=== PATIENT | female | born 1995 | race African-American/Black ===

== ENCOUNTER 2016-07-27 19:22 | Emergency (ER) | payer SELFPAY ==
[~2016-07-27] VITALS: Ht 149.9 cm; Wt 58.0 kg
[2016-07-27 19:23] VITALS: BP 124/62; PULSE 57; RESP 15; TEMP 97.2; O2SAT 97
== END 2016-07-27 22:00 | disposition left against medical advice (07) ==
LOC: NED 19:22
DX: R68.89 Other general symptoms and signs (principal)
CPT/HCPCS: 99281

== ENCOUNTER 2017-02-07 08:20 | Emergency (ER) | payer OTHER ==
[~2017-02-07] VITALS: Ht 149.9 cm; Wt 55.0 kg
[2017-02-07 08:23] VITALS: BP 102/59; PULSE 64; RESP 12; TEMP 97.7; O2SAT 100
--- NOTE | 2017-02-07 08:37 | PD ---
HPI Chief Complaint: Complaint Time Seen by Provider: 08:35 Travel History International Travel<30 days: No Contact w/Intl Traveler<30days: No Traveled to known affect area: No History of Present Illness HPI 21-year-old female patient with history of recent UTI, presents to the ER today because she is having burning when urination for several days. She thinks she may have a UTI. She denies any fevers, abdominal pain, or any other symptoms. Modifying Factors: None Associated Signs & Symptoms: Urinary symptoms Risk Factors: None PFSH Past Medical History Medical History: Denies Significant Hx Diminished Hearing: No Immunizations Current: Yes ?: Unknown LMP: 02/02/2017 Past Surgical History Surgical History: No Previous Surgery Social History Alcohol Use: Yes (RARE ) Tobacco Use: No Substance Use: Yes (WEED EVERY DAY marijuanna) Allergies-Medications (Allergen,Severity, Reaction): Coded Allergies: No Known Allergies (Unverified , 07/27/16) Reported Meds & Prescriptions Reported Meds & Active Scripts Active No Active Prescriptions or Reported Medications Review of Systems Except as stated in HPI: all other systems reviewed are Neg Physical Exam Narrative GENERAL: Well-developed young -[place] female patient currently in no acute distress. Awake and oriented 3. SKIN: Focused skin assessment warm/dry. HEAD: Atraumatic. Normocephalic. EYES: Pupils equal and round. No scleral icterus. No injection or drainage. ENT: No nasal bleeding or discharge. Mucous membranes pink and moist. NECK: Trachea midline. No JVD. CARDIOVASCULAR: Regular rate and rhythm. No murmur appreciated. RESPIRATORY: No accessory muscle use. Clear to auscultation. Breath sounds equal bilaterally. GASTROINTESTINAL: Abdomen soft, non-tender, nondistended. Hepatic and splenic margins not palpable. MUSCULOSKELETAL: No obvious deformities. No clubbing. No cyanosis. No edema. NEUROLOGICAL: Awake and alert. No obvious cranial nerve deficits. Motor grossly within normal limits. Normal speech. PSYCHIATRIC: Appropriate mood and affect; insight and judgment normal. Data Data Last Documented VS Vital Signs Date Time Temp Pulse Resp B/P (MAP) Pulse Ox O2 Delivery O2 Flow Rate FiO2 02/07/17 08:23 97.7 64 12 102/59 (73) 100 Orders Orders Gc And Chlamydia Pcr (02/07/17 08:29) Wet Prep Profile (02/07/17 08:29) Ua Includes Microscopic (02/07/17 08:29) Ed Urine Pregnancytest Poc (02/07/17 08:29) Labs Laboratory Tests Test 02/07/17 08:35 Urine Color YELLOW Urine Turbidity HAZY Urine pH 6.0 Urine Specific [place] 1.026 Urine Protein TRACE mg/dL Urine Glucose (UA) NEG mg/dL Urine Ketones NEG mg/dL Urine Occult Blood SMALL Urine Nitrite NEG Urine Bilirubin NEG Urine Urobilinogen 2.0 MG/DL Urine Leukocyte Esterase LARGE Urine RBC LESS THAN 1 /hpf Urine WBC 4 /hpf Urine Squamous Epithelial Cells 17 /hpf Urine Hyaline Casts 1 /lpf Urine Mucus FEW /lpf MDM Medical Decision Making Medical Screen Exam Complete: Yes Emergency Medical Condition: Yes Medical Record Reviewed: Yes Interpretation(s) Laboratory Tests Test 02/07/17 08:35 Urine Turbidity HAZY (CLEAR) Urine Occult Blood SMALL (NEG) Urine Leukocyte Esterase LARGE (NEG) Urine Mucus FEW /lpf (OCC) Differential Diagnosis UTI versus vaginitis versus cervicitis Narrative Course I have offered to do a pelvic exam for further evaluation but the patient is declining exam at this time. UA is equivocal for mild UTI. My plan would be to treat her with follow-up to primary care physician. Return for new issues as needed. The plan has discussed with her and she states understanding. Diagnosis Primary Impression: UTI (urinary tract infection) Med/Other Pt SpecificInfo: Prescription(s) given Scripts Nitrofurantoin Monohydrate Macrocrystals (Macrobid) 100 Mg Cap 100 MG PO BID for Infection for 7 Days, CAP 0 Refills Prov: Mandeep Acuña MD 02/07/17 Disposition: 01 DISCHARGE HOME Condition: Stable Mandeep Acuña MD Feb 07, 2017 08:37
[2017-02-07 08:50] LABS: BLOOD, URINE SMALL (NEG); GLUCOSE,URINE NEG (NEG); HYALINE CAST, URINE 1 /lpf (RARE); KETONE, URINE NEG (NEG); MUCUS URINE FEW /lpf (OCC); NITRITE,URINE NEG (NEG); SQUAMOUS EPITHELIAL CELL URINE 17 /hpf (0-5); URINE COLOR YELLOW (YELLW/STRAW)
[2017-02-07] MEDS ORDERED: MACR100C2 PO (09:09)
== END 2017-02-07 09:30 | disposition home or self-care (01) ==
LOC: NEPE 08:20
DX: N39.0 Urinary tract infection, site not specified (principal)
CPT/HCPCS: 81001; 84703; 99283

== ENCOUNTER 2017-10-12 13:03 | Emergency (ER) | payer SELFPAY ==
[~2017-10-12] VITALS: Ht 124.5 cm; Wt 54.0 kg
[~2017-10-12 13:03] MED LIST: MACR100C2 PO
[2017-10-12 13:14] VITALS: BP 108/60; PULSE 77; RESP 16; TEMP 98.1; O2SAT 99
--- NOTE | 2017-10-12 14:22 | PD ---
HPI Chief Complaint: Abdominal Pain Time Seen by Provider: 14:14 Travel History International Travel<30 days: No Contact w/Intl Traveler<30days: No Traveled to known affect area: No History of Present Illness HPI This is a 22-year-old female who presents for evaluation. She reports that for 1 month she has had white vaginal discharge. For the past 2 days the vaginal discharge began smelling fishy. Yesterday she began her menstrual periods and that she is having vaginal bleeding. She has had associated crampy sensation in her suprapubic region which is little worse than usual. Today she had some nausea and vomited 2-3 times. She reports that her urine is more dark colored than usual. She denies any dysuria, flank pain, fevers or chills, diarrhea or constipation. She is sexually active with one new partner. Denies any recent antibiotic use. No other complaints at this time. PFSH Past Medical History Diminished Hearing: No Immunizations Current: Yes Social History Alcohol Use: Yes (RARE ) Tobacco Use: No Substance Use: Yes (WEED EVERY DAY [employer]) Allergies-Medications (Allergen,Severity, Reaction): Coded Allergies: No Known Allergies (Unverified , 07/27/16) Reported Meds & Prescriptions Reported Meds & Active Scripts Active Zofran Odt (Ondansetron Odt) 4 Mg Tab 4 Mg SL Q6HR PRN Macrobid (Nitrofurantoin Monoh/Nitrofur Macro) 100 Mg Cap 100 Mg PO BID 7 Days Review of Systems Except as stated in HPI: all other systems reviewed are Neg Physical Exam Narrative GENERAL: Well-developed well-nourished female no acute distress SKIN: Warm and dry. HEAD: Atraumatic. Normocephalic. EYES: Pupils equal and round. No scleral icterus. No injection or drainage. ENT: No nasal bleeding or discharge. Mucous membranes pink and moist. NECK: Trachea midline. No JVD. CARDIOVASCULAR: Regular rate and rhythm. No murmur appreciated. RESPIRATORY: No accessory muscle use. Clear to auscultation. Breath sounds equal bilaterally. GASTROINTESTINAL: Abdomen soft, mild suprapubic tenderness without guarding. No CVA tenderness. Pelvic examination in the presence of a female nurse: Blood noted in the vaginal canal and emanating from the cervical loss. There is no cervical motion tenderness or adnexal tenderness. MUSCULOSKELETAL: No obvious deformities. No clubbing. No cyanosis. No edema. NEUROLOGICAL: Awake and alert. No obvious cranial nerve deficits. Motor grossly within normal limits. Normal speech. Data Data Last Documented VS Vital Signs Date Time Temp Pulse Resp B/P (MAP) Pulse Ox O2 Delivery O2 Flow Rate FiO2 10/12/17 14:38 16 10/12/17 13:14 98.1 77 108/60 (76) 99 Orders Orders Urinalysis - C+S If Indicated (10/12/17 13:17) Ed Urine Pregnancytest Poc (10/12/17 13:17) Gc And Chlamydia Pcr (10/12/17 14:20) Wet Prep Profile (10/12/17 14:20) Ondansetron Odt (Zofran Odt) (10/12/17 14:30) Ketorolac Inj (Toradol Inj) (10/12/17 14:45) Azithromycin Powd Pack (Zithromax Powd P (10/12/17 14:45) Ceftriaxone Inj (Rocephin Inj) (10/12/17 14:45) Lidocaine 1% Inj (50 Ml) (Xylocaine 1% I (10/12/17 14:45) Comprehensive Metabolic Panel (10/12/17 15:08) Complete Blood Count With Diff (10/12/17 15:08) Iv Access Insert/Monitor (10/12/17 15:08) Ondansetron Inj (Zofran Inj) (10/12/17 15:15) Sodium Chlor 0.9% 1000 Ml Inj (Ns 1000 M (10/12/17 15:08) Lipase (10/12/17 15:09) Potassium Chloride (Kcl) (10/12/17 16:15) Metoclopramide Inj (Reglan Inj) (10/12/17 16:30) Ed Discharge Order (10/12/17 16:51) Labs Laboratory Tests Test 10/12/17 00:00 10/12/17 13:20 10/12/17 14:45 10/12/17 15:30 Lipase 81 U/L Urine Color YELLOW Urine Turbidity Slightly Urine pH 6.0 Urine Specific [place] 1.034 Urine Protein 100 mg/dL Urine Glucose (UA) NEG mg/dL Urine Ketones TRACE mg/dL Urine Occult Blood LARGE Urine Nitrite NEG Urine Bilirubin NEG Urine Urobilinogen 1.0 MG/DL Urine Leukocyte Esterase NEG Urine RBC 20 /hpf Urine WBC 2 /hpf Urine Squamous Epithelial Cells 19 /hpf Urine Bacteria OCC /hpf Urine Mucus MANY /lpf Microscopic Urinalysis Comment CULT NOT INDICATED Clue Cells (Wet Prep) NONE SEEN Vaginal Trichomonas (Wet Prep) NONE SEEN Vaginal Yeast (Wet Prep) NONE SEEN Chlamydia trachomatis DNA (PCR) DETECTED Neisseria gonorrhoeae DNA (PCR) NOT DETECTED White Blood Count 6.7 TH/MM3 Red Blood Count 4.20 MIL/MM3 Hemoglobin 11.9 GM/DL Hematocrit 35.7 % Mean Corpuscular Volume 85.0 FL Mean Corpuscular Hemoglobin 28.2 PG Mean Corpuscular Hemoglobin Concent 33.2 % Red Cell Distribution Width 12.6 % Platelet Count 299 TH/MM3 Mean Platelet Volume 8.0 FL Neutrophils (%) (Auto) 71.2 % Lymphocytes (%) (Auto) 19.2 % Monocytes (%) (Auto) 8.3 % Eosinophils (%) (Auto) 0.3 % Basophils (%) (Auto) 1.0 % Neutrophils # (Auto) 4.8 TH/MM3 Lymphocytes # (Auto) 1.3 TH/MM3 Monocytes # (Auto) 0.6 TH/MM3 Eosinophils # (Auto) 0.0 TH/MM3 Basophils # (Auto) 0.1 TH/MM3 CBC Comment DIFF FINAL Differential Comment Blood Urea Nitrogen 11 MG/DL Creatinine 0.74 MG/DL Random Glucose 123 MG/DL Total Protein 7.0 GM/DL Albumin 3.7 GM/DL Calcium Level 8.5 MG/DL Alkaline Phosphatase 42 U/L Aspartate Amino Transf (AST/SGOT) 21 U/L Alanine Aminotransferase (ALT/SGPT) 19 U/L Total Bilirubin 0.4 MG/DL Sodium Level 142 MEQ/L Potassium Level 3.1 MEQ/L Chloride Level 107 MEQ/L Carbon Dioxide Level 20.1 MEQ/L Anion Gap 15 MEQ/L Estimat Glomerular Filtration Rate 119 ML/MIN MDM Medical Decision Making Medical Screen Exam Complete: Yes Emergency Medical Condition: Yes Medical Record Reviewed: Yes Differential Diagnosis Dysmenorrhea, pelvic inflammatory disease, cervicitis, vaginosis, cystitis, tubo -ovarian abscess, , ectopic , ovarian cyst, ovarian torsion Narrative Course 22-year-old female with vaginal discharge for 1 month, fishy smelling over the past 2 days, as well as crampy suprapubic pain for the past 2 days which she attributes to starting her menstrual period. She had 2-3 episodes of nausea and vomiting today. abdomen examination was benign.. Patient will be given oral Zofran. A pelvic examination will be performed. A urinalysis will be obtained. Urine test was performed in triage and is negative. Wet prep and chlamydia gonorrhea probe were sent to the lab. The patient was given Rocephin and azithromycin pending GC results and she vomited soon after azithromycin administration. Therefore the patient was given IV fluids, IV Zofran and basic lab work was obtained. Lab work is reassuring. She does have a potassium of 3.1 but otherwise her lab work is unremarkable. Wet prep is negative. The patient's nausea has improved but she is still nauseous and therefore dose of IV Reglan will be administered prior to discharge. She will be given a prescription for sublingual Zofran. Discussed signs and symptoms that would warrant returning to the emergency room. 1840: The patient test results have come back positive for chlamydia. I suspect that she vomited the azithromycin dose that she received while in the ED and therefore a prescription for 1 g of azithromycin will be prescribed to her. Diagnosis Primary Impression: Dysmenorrhea Additional Impression: Nausea and vomiting Additional Instructions: Medication as needed for nausea. Slowly advance diet as tolerated. Return for any acutely new or worsening symptoms. Med/Other Pt SpecificInfo: Prescription(s) given Scripts Ondansetron Odt (Zofran Odt) 4 Mg Tab 4 MG SL Q6HR Y for Nausea/Vomiting, #20 TAB 0 Refills Prov: Frankie Valadez MD 10/12/17 Disposition: 01 DISCHARGE HOME Condition: Stable Waldemar Armstrong October 12, 2017 14:22
[2017-10-12] MEDS ORDERED: ONDANSETRON ODT 4 MG TAB PO ONE (14:30)
[2017-10-12] MEDS ORDERED: KETOROLAC TROMETHAMINE 60 MG/2 ML (IM) VIAL IM ONE (14:45)
[2017-10-12] MEDS ORDERED: cefTRIAXone 250 MG VIAL IM ONE (14:45)
[2017-10-12] MEDS ORDERED: AZITHROMYCIN PWD FOR SUSP 1 GM PACKET PO ONE (14:45)
[2017-10-12] MEDS ORDERED: LIDOCAINE HCL 1% 50 ML VIAL IM ONE (14:45)
[2017-10-12 15:06] LABS: BLOOD, URINE LARGE (NEG); GLUCOSE,URINE NEG (NEG); KETONE, URINE TRACE mg/dL (NEG); NITRITE,URINE NEG (NEG); URINE COLOR YELLOW (YELLW/STRAW); URINE LEUKOCYTE ESTERASE NEG (NEG)
[2017-10-12] MEDS ORDERED: SODIUM CHLOR 0.9% 1000 ML INJ 1,000 ML IV SCH (15:08)
[2017-10-12] MEDS ORDERED: ONDANSETRON HCL 4 MG/2 ML VIAL IVP ONE (15:15)
[2017-10-12 15:20] LABS: MUCUS URINE MANY /lpf (OCC); SQUAMOUS EPITHELIAL CELL URINE 19 /hpf (0-5)
[2017-10-12 15:22] LABS: BILIRUBIN, URINE NEG (NEG)
[2017-10-12 15:23] LABS: BACTERIA, URINE OCC /hpf
[2017-10-12 15:50] LABS: AUTOMATED NEUTROPHIL # 4.8 TH/MM3 (1.8-7.7); BASOPHIL # 0.1 TH/MM3 (0-0.2); EOSINOPHIL % 0.3 % (0.0-4.0); HEMATOCRIT 35.7 % (35.0-46.0); HEMOGLOBIN 11.9 GM/DL (11.6-15.3); LYMPH % 19.2 % (9.0-44.0); LYMPHOCYTE # 1.3 TH/MM3 (1.0-4.8); MEAN CORPUSCULAR HEMOGLOBIN 28.2 PG (27.0-34.0); MEAN CORPUSCULAR HGB CONC 33.2 % (32.0-36.0); MONO % 8.3 % (0.0-8.0); MONOCYTE # 0.6 TH/MM3 (0-0.9); NEUT % 71.2 % (16.0-70.0); PLATELET COUNT 299 TH/MM3 (150-450); RED CELL DISTRIBUTION WIDTH 12.6 % (11.6-17.2); WHITE BLOOD COUNT 6.7 TH/MM3 (4.0-11.0)
[2017-10-12 16:04] LABS: ALBUMIN 3.7 GM/DL (3.4-5.0); ALT (GPT) 19 U/L (10-53); AST (GOT) 21 U/L (15-37); BICARBONATE 20.1 MEQ/L (21.0-32.0); BLOOD UREA NITROGEN 11 MG/DL (7-18); CALCIUM 8.5 MG/DL (8.5-10.1); CHLORIDE 107 MEQ/L (98-107); CREATININE 0.74 MG/DL (0.50-1.00); GLOMERULAR FILTRATION RATE 119 ML/MIN (>89); GLUCOSE,RANDOM 123 MG/DL (74-106); SODIUM (NA) 142 MEQ/L (136-145)
[2017-10-12 16:05] LABS: ALKALINE PHOSPHATASE 42 U/L (45-117); TOTAL BILIRUBIN ADULT 0.4 MG/DL (0.2-1.0)
[2017-10-12] MEDS ORDERED: POTASSIUM CHLORIDE 20 MEQ CONTROLLED RELEASE TAB PO ONE (16:15)
[2017-10-12] MEDS ORDERED: ZOFR4TAB3 SL (16:19)
[2017-10-12] MEDS ORDERED: METOCLOPRAMIDE HCL 10 MG/2 ML VIAL IV PUSH ONE (16:30)
== END 2017-10-12 17:53 | disposition home or self-care (01) ==
LOC: NEPD 13:03
DX: N94.6 Dysmenorrhea, unspecified (principal); R11.2 Nausea with vomiting, unspecified
CPT/HCPCS: 80053; 81001; 83690; 84703; 85025; 87210; 87491; 87591; 96361; 96372; 96374; 96375; 99284; J0696; J1885; J2405; J2765; J7030

== ENCOUNTER 2017-10-14 04:48 | Emergency (ER) | payer OTHER ==
[~2017-10-14] VITALS: Ht 149.9 cm; Wt 53.0 kg
[~2017-10-14 04:48] MED LIST changes: +ZOFR4TAB3 SL
[2017-10-14] MEDS ORDERED: SODIUM CHLOR 0.9% 1000 ML INJ 1,000 ML IV ONE (05:30)
[2017-10-14] MEDS ORDERED: METOCLOPRAMIDE HCL 10 MG/2 ML VIAL IV PUSH ONE (05:30)
[2017-10-14] MEDS ORDERED: ATROPINE/SCOPOLAM/HYOSCYAM/PB ELIXIR 10 ML CUP PO ONE (05:30)
[2017-10-14] MEDS ORDERED: ONDANSETRON HCL 4 MG/2 ML VIAL IV PUSH ONE (05:30)
[2017-10-14] MEDS ORDERED: ALUMINUM/MAGNESIUM/SIMETH 30 ML CUP PO ONE (05:30)
[2017-10-14] MEDS ORDERED: PANTOPRAZOLE SODIUM 40 MG VIAL IV PUSH ONE (05:30)
[2017-10-14] MEDS ORDERED: diphenhydrAMINE HCL 50 MG/ML VIAL IV PUSH ONE (05:30)
--- NOTE | 2017-10-14 05:31 | PD ---
HPI Chief Complaint: Chest Pain Time Seen by Provider: 05:09 Travel History International Travel<30 days: No Contact w/Intl Traveler<30days: No Traveled to known affect area: No History of Present Illness HPI 22-year-old female complains of chest pain, nausea vomiting. Patient was seen in emergency room 2 days ago for vaginal discharge and vaginal bleeding. Patient also was having nausea vomiting. Patient's menstruation period started about 3 days ago. Patient was tested positive for chlamydia. Patient was given Rocephin IM and Zithromax p.o. Patient vomited Zithromax in the ED. Patient was given prescription for Zofran and azithromycin to go home. Patient states that she has been unable to keep the medication down because of the nausea vomiting. Patient started having substernal chest pain after persistent nausea vomiting. Patient states the pain is burning pain. Patient states that the pain localized to the substernal area. Patient denies any pain radiation. Patient denies any fever chills. PFSH Past Medical History Medical History: Denies Significant Hx Diminished Hearing: No Medical other: Yes (STD) Respiratory: Yes (Brochitits) Immunizations Current: Yes ?: Not LMP: 10/14/17 Past Surgical History Surgical History: No Previous Surgery Social History Alcohol Use: Yes (RARE ) Tobacco Use: No Substance Use: Yes (WEED EVERY DAY [employer]) Allergies-Medications (Allergen,Severity, Reaction): Coded Allergies: No Known Allergies (Unverified Adverse Reaction, Unknown, 10/14/17) Reported Meds & Prescriptions Reported Meds & Active Scripts Active Zofran Odt (Ondansetron Odt) 4 Mg Tab 4 Mg SL Q6HR PRN Macrobid (Nitrofurantoin Monoh/Nitrofur Macro) 100 Mg Cap 100 Mg PO BID 7 Days Review of Systems General / Constitutional: No: Fever Eyes: No: Visual changes HENT: No: Headaches Cardiovascular: Positive: Chest Pain or Discomfort Respiratory: No: Shortness of Breath Gastrointestinal: Positive: Nausea, Vomiting, No: Abdominal Pain Genitourinary: No: Dysuria Musculoskeletal: No: Pain Skin: No Rash Neurologic: No: Weakness Psychiatric: No: Depression Endocrine: No: Polydipsia Hematologic/Lymphatic: No: Easy Bruising Physical Exam Narrative GENERAL: Well-nourished, well-developed patient. SKIN: Focused skin assessment warm/dry. HEAD: Normocephalic. EYES: No scleral icterus. No injection or drainage. NECK: Supple, trachea midline. No JVD or lymphadenopathy. CARDIOVASCULAR: Regular rate and rhythm without murmurs, gallops, or rubs. RESPIRATORY: Breath sounds equal bilaterally. No accessory muscle use. GASTROINTESTINAL: Abdomen soft, nondistended. Patient has mild tenderness on palpation epigastric area. No rebound tenderness. No mass. MUSCULOSKELETAL: No cyanosis, or edema. BACK: Nontender without obvious deformity. No CVA tenderness. Data Data Orders Orders Electrocardiogram (10/14/17 05:18) Complete Blood Count With Diff (10/14/17 05:18) Comprehensive Metabolic Panel (10/14/17 05:18) Lipase (10/14/17 05:18) Chest, Single Ap (10/14/17 05:18) Iv Access Insert/Monitor (10/14/17 05:18) Ecg Monitoring (10/14/17 05:18) Oximetry (10/14/17 05:18) Pantoprazole Inj (Protonix Inj) (10/14/17 05:30) Al-Mag Hy-Si 40-40-4 Mg/Ml Liq (Mag-Al P (10/14/17 05:30) Uegsi-Hsdkrj-Yzogkz-Pb Liq ( Liq (10/14/17 05:30) Ondansetron Inj (Zofran Inj) (10/14/17 05:30) Sodium Chlor 0.9% 1000 Ml Inj (Ns 1000 M (10/14/17 05:30) Metoclopramide Inj (Reglan Inj) (10/14/17 05:30) Diphenhydramine Inj (Benadryl Inj) (10/14/17 05:30) Labs Laboratory Tests Test 10/14/17 05:30 White Blood Count 9.0 TH/MM3 Red Blood Count 4.06 MIL/MM3 Hemoglobin 11.7 GM/DL Hematocrit 34.4 % Mean Corpuscular Volume 84.9 FL Mean Corpuscular Hemoglobin 28.8 PG Mean Corpuscular Hemoglobin Concent 33.9 % Red Cell Distribution Width 12.8 % Platelet Count 321 TH/MM3 Mean Platelet Volume 8.1 FL Neutrophils (%) (Auto) 86.6 % Lymphocytes (%) (Auto) 9.1 % Monocytes (%) (Auto) 3.8 % Eosinophils (%) (Auto) 0.1 % Basophils (%) (Auto) 0.4 % Neutrophils # (Auto) 7.8 TH/MM3 Lymphocytes # (Auto) 0.8 TH/MM3 Monocytes # (Auto) 0.3 TH/MM3 Eosinophils # (Auto) 0.0 TH/MM3 Basophils # (Auto) 0.0 TH/MM3 CBC Comment DIFF FINAL Differential Comment Blood Urea Nitrogen 11 MG/DL Creatinine 0.90 MG/DL Random Glucose 106 MG/DL Total Protein 7.8 GM/DL Albumin 3.9 GM/DL Calcium Level 9.4 MG/DL Alkaline Phosphatase 41 U/L Aspartate Amino Transf (AST/SGOT) 32 U/L Alanine Aminotransferase (ALT/SGPT) 31 U/L Total Bilirubin 0.4 MG/DL Sodium Level 141 MEQ/L Potassium Level 4.1 MEQ/L Chloride Level 107 MEQ/L Carbon Dioxide Level 20.0 MEQ/L Anion Gap 14 MEQ/L Estimat Glomerular Filtration Rate 95 ML/MIN Lipase 79 U/L [facility] Medical Decision Making Medical Screen Exam Complete: Yes Emergency Medical Condition: Yes Interpretation(s) 6:27 AM. Chest x-ray shows no acute pathology. CBC within normal limits. Differential Diagnosis Differential diagnosis including gastroenteritis, gastritis, PUD, pancreatitis, cholecystitis, colitis, UTI, pyelonephritis, nephrolithiasis. Narrative Course 22-year-old female complains of substernal chest pain, nausea vomiting. Patient tested positive for chlamydia 2 days ago. Patient was given Zithromax however vomited Zithromax. Normal saline solution 1 L IV bolus. Zofran 4 mg IV. Reglan 10 mg IV. Benadryl 25 mg IV. Diagnosis Primary Impression: Atypical chest pain Additional Impression: Chlamydial cervicitis Patient Instructions: General Instructions Additional Instructions: Take medications as directed. Follow-up local physician. Return if worse. Med/Other Pt SpecificInfo: Prescription(s) given Scripts Promethazine (Phenergan) 25 Mg Tablet 25 MG PO Q6H Y for NAUSEA OR VOMITING, #12 TAB 0 Refills Prov: Ramesh Resendiz MD 10/14/17 Doxycycline Hyclate (Doxycycline Hyclate) 100 Mg Cap 100 MG PO BID for Infection, #20 CAP 0 Refills Prov: Ramesh Resendiz MD 10/14/17 Disposition: 01 DISCHARGE HOME Condition: Stable Ramesh Resendiz MD October 14, 2017 05:31
[2017-10-14 05:53] LABS: AUTOMATED NEUTROPHIL # 7.8 TH/MM3 (1.8-7.7); BASOPHIL % 0.4 % (0.0-2.0); EOSINOPHIL % 0.1 % (0.0-4.0); HEMATOCRIT 34.4 % (35.0-46.0); HEMOGLOBIN 11.7 GM/DL (11.6-15.3); LYMPH % 9.1 % (9.0-44.0); LYMPHOCYTE # 0.8 TH/MM3 (1.0-4.8); MEAN CELL VOLUME 84.9 FL (80.0-100.0); MEAN CORPUSCULAR HEMOGLOBIN 28.8 PG (27.0-34.0); MEAN CORPUSCULAR HGB CONC 33.9 % (32.0-36.0); MEAN PLATELET VOLUME 8.1 FL (7.0-11.0); MONO % 3.8 % (0.0-8.0); MONOCYTE # 0.3 TH/MM3 (0-0.9); NEUT % 86.6 % (16.0-70.0); PLATELET COUNT 321 TH/MM3 (150-450); RED BLOOD COUNT 4.06 MIL/MM3 (4.00-5.30); RED CELL DISTRIBUTION WIDTH 12.8 % (11.6-17.2)
--- NOTE | 2017-10-14 06:23 | RADRPT ---
EXAM DATE/TIME: 10/14/2017 05:29 [place] COMPARISON: No previous studies available for comparison. INDICATIONS : Chest pain. MEDICAL HISTORY : None. SURGICAL HISTORY : None. ENCOUNTER: Initial ACUITY: 1 day PAIN SCORE: 7/10 LOCATION: Bilateral chest FINDINGS: A single view of the chest demonstrates the lungs to be symmetrically aerated without evidence of mas s, infiltrate or effusion. The cardiomediastinal contours are unremarkable. Osseous structures are intact. CONCLUSION: No acute disease. Scotty Lamar MD on October 14, 2017 at 6:21 Board Certified Radiologist. This report was verified electronically.
[2017-10-14 06:30] LABS: ALBUMIN 3.9 GM/DL (3.4-5.0); ALKALINE PHOSPHATASE 41 U/L (45-117); ALT (GPT) 31 U/L (10-53); AST (GOT) 32 U/L (15-37); BLOOD UREA NITROGEN 11 MG/DL (7-18); CALCIUM 9.4 MG/DL (8.5-10.1); CHLORIDE 107 MEQ/L (98-107); GLOMERULAR FILTRATION RATE 95 ML/MIN (>89); GLUCOSE,RANDOM 106 MG/DL (74-106); SODIUM (NA) 141 MEQ/L (136-145); TOTAL BILIRUBIN ADULT 0.4 MG/DL (0.2-1.0); TOTAL PROTEIN 7.8 GM/DL (6.4-8.2)
[2017-10-14] MEDS ORDERED: DOXY100C PO (06:39)
[2017-10-14] MEDS ORDERED: PROM25TA10 PO (06:39)
--- NOTE | 2017-10-14 12:07 | EKG ---
Date Performed: 10/14/2017 Time Performed: 05:33:12 PTAGE: 22 years EKG: SINUS BRADYCARDIA WITH SINUS ARRHYTHMIA WITH SHORT MS INTERVAL BORDERLINE ECG NO PREVIOUS TRACING DOCTOR: Loco Cuello Interpretating Date/Time 10/14/2017 12:05:50
== END 2017-10-14 07:20 | disposition home or self-care (01) ==
LOC: NEPE 04:48
DX: R07.89 Other chest pain (principal); A56.09 Other chlamydial infection of lower genitourinary tract
CPT/HCPCS: 71045; 80053; 83690; 85025; 93005; 96361; 96374; 96375; 99285; C9113; J1200; J2405; J2765; J7030

== ENCOUNTER 2017-10-15 06:31 | Emergency (ER) | payer OTHER ==
[~2017-10-15] VITALS: Ht 149.9 cm; Wt 53.0 kg
[~2017-10-15 06:31] MED LIST changes: +DOXY100C PO; +PROM25TA10 PO
[2017-10-15 06:43] VITALS: BP 108/72; PULSE 64; RESP 16; TEMP 98.3; O2SAT 98
[2017-10-15] MEDS ORDERED: KETOROLAC TROMETHAMINE 60 MG/2 ML (IM) VIAL IM ONE (07:15)
[2017-10-15] MEDS ORDERED: PROMETHAZINE INJ 25 MG/ML VIAL IM ONE (07:45)
[2017-10-15] MEDS ORDERED: ONDANSETRON ODT 4 MG TAB PO ONE (07:45)
--- NOTE | 2017-10-15 07:51 | PD ---
HPI Chief Complaint: Chest Pain Time Seen by Provider: 07:05 Travel History International Travel<30 days: No Contact w/Intl Traveler<30days: No Traveled to known affect area: No History of Present Illness HPI The patient is 22 years old and arrives to the ER with a complaint of chest pain. She was just seen here about 24 hours prior. The patient at that time had normal competence of panel and lipase normal CBC x-ray and EKG. She was discharged with a diagnosis of chest pain. Review of the prior documentation states the patient was unable to tolerate azithromycin in the ED. She was given some to take at home however was unable to tolerate it at home to due to nausea and vomiting. She was prescribed Phenergan tablets and doxycycline. She reports she is unable to take the medication. She reports to the ER and that she has chest pain. She reports to me chest pain, insomnia, weakness and vomiting. PFSH Past Medical History Diminished Hearing: No Respiratory: Yes (Brochitits) Immunizations Current: Yes ?: Not LMP: 10/15/17 Past Surgical History Surgical History: No Previous Surgery Social History Alcohol Use: Yes (RARE ) Tobacco Use: No Substance Use: Yes (WEED EVERY DAY [employer]) Allergies-Medications (Allergen,Severity, Reaction): Coded Allergies: No Known Allergies (Unverified Adverse Reaction, Unknown, 10/15/17) Reported Meds & Prescriptions Reported Meds & Active Scripts Active Phenergan (Promethazine HCl) 25 Mg Tablet 25 Mg PO Q6H PRN Doxycycline Hyclate 100 Mg Cap 100 Mg PO BID Zofran Odt (Ondansetron Odt) 4 Mg Tab 4 Mg SL Q6HR PRN Macrobid (Nitrofurantoin Monoh/Nitrofur Macro) 100 Mg Cap 100 Mg PO BID 7 Days Review of Systems Except as stated in HPI: all other systems reviewed are Neg General / Constitutional: No: Fever Physical Exam Narrative GENERAL: 22-year-old female pleasant well-nourished well-developed mild distress secondary to nausea Vital Signs Date Time Temp Pulse Resp B/P (MAP) Pulse Ox O2 Delivery O2 Flow Rate FiO2 10/15/17 07:10 62 18 100 Room Air 10/15/17 06:43 98.3 64 16 108/72 (84) 98 Room Air SKIN: Warm and dry. HEAD: Atraumatic. Normocephalic. EYES: Pupils equal and round. No scleral icterus. No injection or drainage. ENT: No nasal bleeding or discharge. Mucous membranes pink and moist. NECK: Trachea midline. No JVD. CARDIOVASCULAR: Regular rate and rhythm. RESPIRATORY: No accessory muscle use. Clear to auscultation. Breath sounds equal bilaterally. GASTROINTESTINAL: Abdomen soft, non-tender, nondistended. Hepatic and splenic margins not palpable. MUSCULOSKELETAL: Extremities without clubbing, cyanosis, or edema. No obvious deformities. NEUROLOGICAL: Awake and alert. No obvious cranial nerve deficits. Motor grossly within normal limits. Five out of 5 muscle strength in the arms and legs. Normal speech. PSYCHIATRIC: Appropriate mood and affect; insight and judgment normal. Data Data Last Documented VS Vital Signs Date Time Temp Pulse Resp B/P (MAP) Pulse Ox O2 Delivery O2 Flow Rate FiO2 10/15/17 07:10 62 18 100 Room Air 10/15/17 06:43 98.3 108/72 (84) Orders Orders Ketorolac Inj (Toradol Inj) (10/15/17 07:15) Ondansetron Odt (Zofran Odt) (10/15/17 07:45) Promethazine Inj (Phenergan Inj) (10/15/17 07:45) Azithromycin Powd Pack (Zithromax Powd P (10/15/17 08:00) Ed Discharge Order (10/15/17 09:01) [facility] Medical Decision Making Medical Screen Exam Complete: Yes Emergency Medical Condition: Yes Medical Record Reviewed: Yes Differential Diagnosis Medication noncompliance, chlamydia, disseminated chlamydia, pneumonia Narrative Course History is somewhat difficult to obtain with the patient as she is rolling her eyes looking from side to side and does not answer questions directly, whispers and/or ignores the interviewer and nurse. Review of the chart suggests that chlamydia will require treatment here today. She has been given Phenergan and Zofran here. It should be noted that she asked if the chlamydia was treated. The patient states she is unable to fill the Doxy and Phenergan prescriptions. After antiemetics here the patient was able to tolerate 1 g of azithromycin. She is ready for discharge. Diagnosis Primary Impression: Atypical chest pain Additional Impressions: Nausea & vomiting Qualified Codes: R11.2 - Nausea with vomiting, unspecified Chlamydia Referrals: [facility] call for appointment Med/Other Pt SpecificInfo: Prescription(s) given Disposition: 01 DISCHARGE HOME Condition: Frankie Remy MD October 15, 2017 07:51
[2017-10-15] MEDS ORDERED: AZITHROMYCIN PWD FOR SUSP 1 GM PACKET PO ONE (08:00)
== END 2017-10-15 09:11 | disposition home or self-care (01) ==
LOC: NEPC 06:31
DX: R07.89 Other chest pain (principal); R11.2 Nausea with vomiting, unspecified; G47.00 Insomnia, unspecified; R53.1 Weakness; F12.90 Cannabis use, unspecified, uncomplicated
CPT/HCPCS: 96372; 99283; J1885; J2550